=== PATIENT | male | born 1930 | race Caucasian/White ===

== ENCOUNTER 2017-03-11 13:01 | Emergency (ER) | payer MEDICARE ==
[2017-03-11 13:15] VITALS: TEMP 97.8; O2SAT 97
[2017-03-11] MEDS ORDERED: HYDROcodone 7.5MG/APAP 325MG 1 EA TAB PO ONE (13:28)
--- NOTE | 2017-03-11 13:36 | RAD ---
EXAM DESCRIPTION: Wrist,Left 3 Views CLINICAL HISTORY: 86 years Male, fall with pain at wrist, swelling this am IMPRESSION: Two views of the left wrist reveal a comminuted fracture of the distal radius with extension into the radiocarpal joint. Degenerative change seen within the base of thumb and DIP joints of the five digits. No additional fractures noted. Vascular calcification is Electronically signed by: Dariel Cotto MD 03/11/2017 1:35 PM CDT
--- NOTE | 2017-03-11 14:12 | ED.PDOC ---
History of Present Illness - General Chief Complaint: Upper Extremity Injury Time Seen by Provider: 03/11/17 13:08 Source: patient, family Exam Limitations: no limitations - History of Present Illness Initial Comments: the patient is an 86-year-old male presenting to the emergency room after having fallen approximately 3 hours prior to arrival on his outstretched left hand. The patient has some swelling and pain surrounding the entirety of the left wrist. No lacerations. He appears to be neurovascularly intact. Capillary refills less than 2 seconds. Sensation is preserved. Tendon function appears to be preserved. No evidence of injury elsewhere. The patient simply tripped and fell. Occurred: this morning Pain - Upper Extremity: severe: Wrist, left Method of Injury: fell Improving Factors: immobilization Worsening Factors: movement Allergies/Adverse Reactions: Allergies NO KNOWN ALLERGY Allergy (Verified 03/11/17 13:14) Home Medications: Ambulatory Orders [id number] [Fioricet] 1 ea PO Q8H PRN #21 tab 03/11/17 Review of Systems - Review of Systems Constitutional: States: no symptoms reported EENTM: States: no symptoms reported Respiratory: States: no symptoms reported Cardiology: States: no symptoms reported Gastrointestinal/Abdominal: States: no symptoms reported Genitourinary: States: no symptoms reported Musculoskeletal: States: see HPI Skin: States: no symptoms reported Neurological: States: no symptoms reported Endocrine: States: no symptoms reported All other Systems: No Change from Baseline Past Medical History (General) - Patient Medical History Hx Stroke: No Hx Cardiac Disorders: Yes - Hx CEA and CABG; high cholesterol Hx Congestive Heart Failure: No Hx Hypertension: Yes Hx Thyroid Disease: Yes Hx Diabetes: No Hx Cancer: Yes - skin CA Surgical History: colectomy - Vaccination History Hx Influenza Vaccination: Yes Hx Pneumococcal Vaccination: Yes - Social History Hx Tobacco Use: No Family Medical History - Family History Father Family History: No Known Living Status: Physical Exam - Physical Exam General Appearance: Alert, No apparent distress Eyes, Ears, Nose, Throat Exam: PERRL/EOMI, other - hearing appears to be grossly preserved Neck: non-tender, full range of motion, supple Cardiovascular/Respiratory: normal peripheral pulses, no respiratory distress, other - regular rate Back Exam: normal inspection, no vertebral tenderness Shoulder Exam: normal inspection, non-tender, no evidence of injury, normal ROM Elbow/Forearm Exam: normal inspection, non-tender, no evidence of injury, normal ROM Wrist Exam: bone tenderness, pain, swelling Hand Exam: normal inspection, non-tender, no evidence of injury Neuro/Tendon: normal sensation, normal motor functions, normal tendon functions Mental Status: alert, oriented x 3 Skin Exam: normal color Comments: Vital Signs - 24 hr 03/11/17 13:06 Temperature 97.8 F Pulse Rate [ 63 Left Radial] Respiratory 20 Rate Blood Pressure 137/61 [Right Arm] O2 Sat by Pulse 97 Oximetry Progress - Progress Progress: 03/11/17 14:12 the patient is a 86-year-old male presenting after a fall on his outstretched left arm sustaining a distal radius fracture. The distal radius fracture is comminuted in nature and does extend into the radiocarpal joint. There are no lacerations. There is nothing to reduce externally at this time. The patient will be written for Fioricet for pain control. He does need to follow up with Dr. boswell at 9 AM on for evaluation to see if he is going to require surgical intervention. Due to gait instability issues the patient is placed in an extended ulnar gutter splint with slight ulnar deviation and flexion of the wrist, and should use a sling additionally to help prevent movement of the fracture sites. he is to return to the emergency room for any significant worsening of symptoms. ER warnings were given. 2 Advil can be taken 3 times daily with food to help reduce pain is well for the next 3-4 days 03/11/17 14:16 Departure - Departure Clinical Impression: Distal radius fracture, left Qualifiers: Encounter type: initial encounter Fracture type: closed Fracture morphology: other intra-articular Qualifier Code: (S52.572A) Other intraarticular fracture of lower end of left radius, initial encounter for closed fracture Disposition: Discharge to Home or Self Care Condition: Fair Departure Forms: ED Discharge - Pt. Copy, Patient Portal Self Enrollment Instructions: DI for Wrist Fracture Diet: regular diet Activity: no pushing/pulling with affected limb Referrals: Fran Swain MD [Primary Care Provider] - 1-2 Weeks Prescriptions: Gwrdbrdjqzooo-Mczj-Epssqejuhg [Fioricet] 1 ea PO Q8H PRN #21 tab PRN Reason: Pain Home Medications: Ambulatory Orders Qazxnpnzfnhwa-Cywv-Viqazwfcrb [Fioricet] 1 ea PO Q8H PRN #21 tab 03/11/17 Additional Instructions: the patient is a 86-year-old male presenting after a fall on his outstretched left arm sustaining a distal radius fracture. The distal radius fracture is comminuted in nature and does extend into the radiocarpal joint. There are no lacerations. There is nothing to reduce externally at this time. The patient will be written for Fioricet for pain control. He does need to follow up with Dr. boswell at 9 AM on for evaluation to see if he is going to require surgical intervention. Due to gait instability issues the patient is placed in an extended ulnar gutter splint with slight ulnar deviation and flexion of the wrist, and should use a sling additionally to help prevent movement of the fracture sites. he is to return to the emergency room for any significant worsening of symptoms. ER warnings were given. 2 Advil can be taken 3 times daily with food to help reduce pain is well for the next 3-4 days
[2017-03-11 14:36] VITALS: BP 132/67
== END 2017-03-11 14:36 | disposition home or self-care (01) ==
LOC: ER 13:01
DX: S52.572A Other intraarticular fracture of lower end of left radius, initial encounter for closed fracture (principal); I10 Essential (primary) hypertension; E03.9 Hypothyroidism, unspecified; E78.00 Pure hypercholesterolemia, unspecified; Z85.828 Personal history of other malignant neoplasm of skin; Z95.1 Presence of aortocoronary bypass graft; W01.0XXA Fall on same level from slipping, tripping and stumbling without subsequent striking against object, initial encounter

== ENCOUNTER → 2017-03-13 | Outpatient (CLI) | payer MEDICARE ==
--- NOTE | 2017-03-14 08:20 | RAD ---
EXAM DESCRIPTION: Wrist,Left 3 Views CLINICAL HISTORY: 86 years,Male ,FX COMPARISON: March 11, 2017 FINDINGS: The left wrist demonstrates comminuted fracture to the distal radius with intra-articular extent. There is no incongruency of the articular surface but there is some widening of the fracture line at least two places. Up to 3 mm at the ulnar aspect and 4 mm at the dorsal aspect with mild impaction and mild blurring of the fracture line indicating some healing since prior study. But no change in placement.. Soft tissues appear unremarkable. Joint spaces are unremarkable.. Overlying ulnar splint is seen now. IMPRESSION: Healing comminuted fracture to the distal left radius. Electronically signed by: Devante Mathis MD 03/14/2017 8:19 AM CDT
== END ==
LOC: RAD 09:01
PROVIDERS: ATTEND Orthopaedic Surgery
DX: S52.502D Unspecified fracture of the lower end of left radius, subsequent encounter for closed fracture with routine healing (principal)

== ENCOUNTER → 2017-03-21 | Outpatient (CLI) | payer MEDICARE ==
--- NOTE | 2017-03-21 13:00 | RAD ---
EXAM DESCRIPTION: Wrist,Left 3 Views CLINICAL HISTORY: 86 years, Male, FX COMPARISON: March 13, 2017 TECHNIQUE: AP/ lateral/ oblique views of the left wrist. FINDINGS: Out of splint imaging demonstrates a nondisplaced articular fracture of the distal radius in stable anatomic alignment. On the lateral view slight displacement of the dorsal fragments is evident and little changed from prior study. No carpal dislocation is seen. Additional fractures are not apparent. IMPRESSION: 1. Comminuted near-anatomic intra-articular fracture of the distal radius with slight displacement of the dorsal fragments on the lateral view only. Electronically signed by: Esau Corrigan MD 03/21/2017 1:00 PM CDT
== END | disposition home or self-care (01) ==
LOC: RAD 09:00
PROVIDERS: ATTEND Orthopaedic Surgery
DX: S52.502D Unspecified fracture of the lower end of left radius, subsequent encounter for closed fracture with routine healing (principal); X58.XXXA Exposure to other specified factors, initial encounter

== ENCOUNTER → 2017-04-04 | Outpatient (CLI) | payer MEDICARE ==
--- NOTE | 2017-04-06 11:42 | RAD ---
EXAM DESCRIPTION: Wrist,Left 3 Views CLINICAL HISTORY: 86 years, Male, CLOSED FX COMPARISON: March 21, 2017 TECHNIQUE: AP/ lateral/ oblique views of the left wrist. FINDINGS: A nondisplaced intra-articular fracture of the distal radius is evident on the AP view and remains in stable alignment with very slight dorsal displacement noted on the lateral view with some developing callus formation. No significant change in alignment is noted and a small amount callus at the volar extent of the fracture on the lateral view is also apparent. The distal ulna is intact and no carpal dislocation seen. IMPRESSION: 1. Stable intra-articular fracture of the distal radius with early changes of callus formation at the dorsal and volar aspect of the fracture with stable alignment unchanged from 03/21/2017 Electronically signed by: Esau Corrigan MD 04/06/2017 11:41 AM CDT
== END | disposition home or self-care (01) ==
LOC: RAD 09:00
PROVIDERS: ATTEND Orthopaedic Surgery
DX: S52.502D Unspecified fracture of the lower end of left radius, subsequent encounter for closed fracture with routine healing (principal)

== ENCOUNTER → 2017-04-24 | Outpatient (CLI) | payer MEDICARE ==
--- NOTE | 2017-04-24 09:37 | RAD ---
EXAM DESCRIPTION: Wrist,Left 3 Views CLINICAL HISTORY: 86 years, Male, FRACTURE COMPARISON: March 21, 2017 TECHNIQUE: AP/ lateral/ oblique views of the left wrist. FINDINGS: A nondisplaced intra-articular fracture of the distal radius is evident on the AP view and remains in stable alignment with very slight dorsal displacement noted on the lateral view with some developing periosteal callus formation. No significant change in alignment is noted and a small amount callus at the volar extent of the fracture on the lateral view is also apparent. The distal ulna is intact and no carpal dislocation seen. IMPRESSION: 1. Stable intra-articular fracture of the distal radius with early changes of periosteal callus formation at the dorsal and volar aspect of the fracture with stable alignment unchanged from April 04, 2017 Electronically signed by: Ayo Lopez MD 04/24/2017 9:37 AM CDT
== END | disposition home or self-care (01) ==
LOC: RAD 09:19
PROVIDERS: ATTEND Orthopaedic Surgery
DX: S52.502D Unspecified fracture of the lower end of left radius, subsequent encounter for closed fracture with routine healing (principal); X58.XXXA Exposure to other specified factors, initial encounter

== ENCOUNTER → 2017-05-13 | Outpatient (CLI) | payer MEDICARE ==
--- NOTE | 2017-05-13 09:49 | RAD ---
EXAM DESCRIPTION: Wrist,Left 3 Views CLINICAL HISTORY: 86 years, Male, RAD FX COMPARISON: April 24, 2017 TECHNIQUE: AP/ lateral/ oblique views of the left wrist. FINDINGS: Increased sclerosis and callus formation with incomplete healing of the intra-articular fracture of the distal radius is noted. Less lucency is noted in comparison to recent prior study. A longitudinal fracture line through the mid articular surface remains and is most evident on the oblique view. Slight central impaction on the lateral study is suggested but unchanged. The carpal bones are degenerative and mildly osteopenic but no fracture is noted. The distal ulna is intact. IMPRESSION: 1. Comminuted intra-articular fracture of the deep distal radius with slight impaction with evidence of partial progressive healing since prior study Electronically signed by: Esau Corrigan MD 05/13/2017 9:48 AM CDT
== END | disposition home or self-care (01) ==
LOC: RAD 07:50
PROVIDERS: ATTEND Orthopaedic Surgery
DX: S52.502D Unspecified fracture of the lower end of left radius, subsequent encounter for closed fracture with routine healing (principal); X58.XXXA Exposure to other specified factors, initial encounter

== ENCOUNTER → 2017-06-09 | Outpatient (CLI) | payer MEDICARE ==
--- NOTE | 2017-06-09 17:23 | RAD ---
EXAM DESCRIPTION: Wrist,Left 3 Views CLINICAL HISTORY: 86 years Male, CLOSED FX OF DISTAL END OF RADIUS COMPARISON: None. FINDINGS: 3 views of the left wrist again show a minimally displaced comminuted distal radial fracture with intra-articular extension. Overall, the appearance of the fracture is unchanged from May 17, 2017 and the fracture remains at least partially nonunited. Minimal callus formation is noted. No new abnormality or other significant interval change. IMPRESSION: Comminuted distal left radial fracture with intracranial extension, not significantly changed from May 13, 2017. Minimal callus formation, and the fracture remains largely nonunited. Electronically signed by: Felice Nguyễn MD 06/09/2017 11:43 AM CDT Workstation: [facility]ENTERAxial ExchangeBLECK[facility]
== END ==
LOC: RAD 08:37
PROVIDERS: ATTEND Orthopaedic Surgery
DX: S52.502D Unspecified fracture of the lower end of left radius, subsequent encounter for closed fracture with routine healing (principal)

== ENCOUNTER → 2018-01-30 | Outpatient (CLI) | payer MEDICARE | LOC: GMAH 11:13 | PROVIDERS: ATTEND Family Medicine | DX: E03.4 Atrophy of thyroid (acquired) (principal) ==

== ENCOUNTER 2018-03-26 05:38 | Day surgery (SDC) | payer MEDICARE ==
[2018-03-26] MEDS ORDERED: TROP 1%/CYCLOPEN 1%/PHENYL 2% DROPS ONE (08:40)
[2018-03-26] MEDS ORDERED: MIDAZOLAM INJ 2 MG/2 ML VIAL ONE (12:38)
[2018-03-26] MEDS ORDERED: TOBRAMYCIN SULF 0.3 % OPHT SOL 1 DROP LEFT_EYE ONE ×3 (12:40→14:24)
[2018-03-26] MEDS: PROPARACAINE 0.5% OPHTH SOL 15 ML BTTL ONE ×2 (12:40→14:04)
[2018-03-26] MEDS ORDERED: DEXAMETHASONE 0.1% OPHTH SOL 1 DROP LEFT_EYE ONE ×2 (14:18→14:24)
[2018-03-26] MEDS ORDERED: BRIMONIDINE 0.2% OPHTH DROPS LEFT_EYE ONE ×2 (14:18→14:24)
[2018-03-26 15:15] VITALS: BP 140/74; TEMP 96.8; O2SAT 94
== END 2018-03-26 15:05 | disposition home or self-care (01) ==
LOC: AMB 05:38
PROVIDERS: ATTEND Ophthalmology
DX: H25.12 Age-related nuclear cataract, left eye (principal); I10 Essential (primary) hypertension; I25.10 Atherosclerotic heart disease of native coronary artery without angina pectoris
CPT/HCPCS: 00142; 66984; J2250

== ENCOUNTER 2018-04-09 05:59 | Day surgery (SDC) | payer MEDICARE ==
[2018-04-09] MEDS ORDERED: TROP 1%/CYCLOPEN 1%/PHENYL 2% DROPS ONE (10:22)
[2018-04-09] MEDS ORDERED: PROPARACAINE 0.5% OPHTH SOL 15 ML BTTL ONE (10:22)
[2018-04-09] MEDS ORDERED: MIDAZOLAM INJ 2 MG/2 ML VIAL ONE (12:20)
[2018-04-09] MEDS ORDERED: PROPARACAINE 0.5% OPHTH SOL 15 ML BTTL RIGHT_EYE ONE (14:04)
[2018-04-09] MEDS ORDERED: LIDOCAINE 1% PF 2 ML AMP INJ ONE (14:17)
[2018-04-09] MEDS ORDERED: DEXAMETHASONE 0.1% OPHTH SOL 1 DROP RIGHT_EYE ONE ×2 (14:18→14:22)
[2018-04-09] MEDS ORDERED: TOBRAMYCIN SULF 0.3 % OPHT SOL 1 DROP RIGHT_EYE ONE ×2 (14:18→14:22)
[2018-04-09] MEDS ORDERED: BRIMONIDINE 0.2% OPHTH DROPS RIGHT_EYE ONE ×2 (14:18→14:22)
== END 2018-04-09 15:00 | disposition home or self-care, planned readmission (81) ==
LOC: AMB 05:59
PROVIDERS: ATTEND Ophthalmology
DX: H25.11 Age-related nuclear cataract, right eye (principal); I10 Essential (primary) hypertension; I25.10 Atherosclerotic heart disease of native coronary artery without angina pectoris; F03.90 Unspecified dementia, unspecified severity, without behavioral disturbance, psychotic disturbance, mood disturbance, and anxiety; Z95.1 Presence of aortocoronary bypass graft; Z79.82 Long term (current) use of aspirin; Z79.899 Other long term (current) drug therapy
CPT/HCPCS: 00142; 66984; J2250

== ENCOUNTER → 2018-05-05 | Outpatient (CLI) | payer MEDICARE | LOC: GMAH 10:41 | PROVIDERS: ATTEND Family Medicine | DX: Z12.5 Encounter for screening for malignant neoplasm of prostate (principal); I10 Essential (primary) hypertension | CPT/HCPCS: 84443; 84550; G0103 ==

== ENCOUNTER → 2018-11-25 | Outpatient (CLI) | payer MEDICARE | LOC: BFHH 11:13 | PROVIDERS: ATTEND Surgery | DX: I25.10 Atherosclerotic heart disease of native coronary artery without angina pectoris (principal); I10 Essential (primary) hypertension ==

== ENCOUNTER → 2018-11-26 | Outpatient (CLI) | payer MEDICARE | LOC: BFHH 13:10 | PROVIDERS: ATTEND Family Medicine | DX: L97.319 Non-pressure chronic ulcer of right ankle with unspecified severity (principal) ==

== ENCOUNTER → 2018-12-25 | Outpatient (CLI) | payer MEDICARE ==
--- NOTE | 2018-12-25 11:30 | MRI ---
EXAM DESCRIPTION: MRI right ankle CLINICAL HISTORY: Medial right ankle pain since September 2018 COMPARISON: None. TECHNIQUE: Multiplanar, multisequence MR images of the right ankle FINDINGS: Tibiofibular syndesmosis and ligaments are intact. Remote anterior talofibular ligament tear with attenuation. Calcaneofibular and posterior talofibular ligaments are intact. Intact deltoid ligament and calcaneonavicular ligament Posterior tibial, flexor digitorum and flexor hallux tendons are intact. Dorsiflexion tendons are normal. Flattened peroneus brevis retromalleolar. Tendinosis without split morphology. Peroneus longus tendon intact Mild chronic Achilles tendinosis. No acute abnormality. Distal dorsal insertional enthesophyte without edema Large well-corticated plantar calcaneal spur. No acute abnormality of the plantar fascia. Chronically thickened middle bundle No mass lesion seen along the neurovascular structures. Mild edema in the medial plantar nerve along the arch the foot. In addition to fatty infiltration of the intrinsic muscles of the foot there is mild diffuse edema. The muscles of the lower leg and the intrinsic muscles of the foot are atrophic and diffusely fatty infiltrated, chronic denervation Prominent intraosseous vasculature throughout the tibia, fibula and bones of the ankle. Edema within the distal fibular diaphysis, seen on the edge of [id number]. No linear stress fracture. No edema in the tibia or tarsal bones. No osteochondral lesion of the hindfoot or ankle IMPRESSION: Mild intramedullary edema in the distal fibular diaphysis. There are prominent intraosseous vessels which may account for this finding on the edge of the [id number]. Stress related edema could have a similar appearance. No other marrow abnormality or osteochondral lesion Diffuse severely atrophic and fatty infiltrated muscles of the lower leg. Minimal edema in the medial plantar nerve, nonspecific neuritis. The muscle atrophy and fatty infiltration is compatible with denervation etiology Electronically signed by: Esau Garrett MD 12/25/2018 11:28 AM [facility]
== END ==
LOC: MRI 11:09
PROVIDERS: ATTEND Family Medicine
DX: M25.579 Pain in unspecified ankle and joints of unspecified foot (principal); M62.561 Muscle wasting and atrophy, not elsewhere classified, right lower leg; R60.0 Localized edema

== ENCOUNTER → 2019-07-30 | Outpatient (CLI) | payer MEDICARE ==
--- NOTE | 2019-07-30 12:27 | CT ---
EXAM DESCRIPTION: Head w/wo Contrast CLINICAL HISTORY: LOCALIZED SWELLING MASS LUMP COMPARISON: None available TECHNIQUE: CT brain is performed prior to and following IV administration of routine adult dose of nonionic iodinated IV contrast. FINDINGS: Ventricles and sulci are prominent consistent with age-related cerebral volume loss. There is no hemorrhage or mass. There are no white matter abnormalities detected on the precontrast images. The calvarium is unremarkable. Soft tissue mass in the posterior left frontal region involves the scalp and measures 1.5 x 1.1 cm. No underlying bony involvement. Similar smaller lesion on the right seen on the axial images measures 7 mm. Correlate with dermatologic exam/biopsy. The visualized paranasal sinuses and the mastoids are clear. After IV contrast, repeat axial CT scan through the head shows normal enhancement of intracranial vessels. Normal liao-white matter differentiation. No enhancing intracranial mass or abnormal brain parenchymal enhancement to suggest disruption of the blood brain barrier. Coronal and sagittal reformatted images confirm the findings. IMPRESSION: No acute intracranial pathologic process. Bilateral posterior frontal scalp lesions, larger on the left than the right, with no involvement of the underlying calvarium. Dermatologic consultation/biopsy recommended. This exam was performed according to our departmental dose-optimization program, which includes automated exposure control, adjustment of the mA and/or kV according to patient size and/or use of iterative reconstruction technique. Electronically signed by: Jarred Galeano MD 07/30/2019 12:13 PM CDT
--- NOTE | 2019-07-30 12:39 | CT ---
EXAM DESCRIPTION: Chest w/Contrast CLINICAL HISTORY: 89 years, Male, LOCALIZED SWELLING COMPARISON: None TECHNIQUE: Thin-section noncontrast axial CT images are obtained according to our protocol. Reconstructed MPR images are created and reviewed as well. FINDINGS: Lungs: Patchy infiltrates in both lower lobes, left more than right, could be pneumonia or atelectasis. No central obstructing lesion with positive air bronchograms in the consolidated areas. No worrisome pulmonary mass or nodule. Mediastinum: Lymph nodes are normal in size. Normal vascular contours. Heart size is large with no pericardial effusion. Extensive coronary arterial calcification. Chest wall/axilla: No mass or adenopathy. Lower neck/supraclavicular: No mass or adenopathy. Upper abdomen: Unremarkable upper abdominal viscera. Coronal and sagittal reformatted images confirm the findings. IMPRESSION: Bibasilar atelectasis/consolidation, left more than right, consistent with pneumonia. This exam was performed according to our departmental dose-optimization program, which includes automated exposure control, adjustment of the mA and/or kV according to patient size and/or use of iterative reconstruction technique. Total DLP equals 523.84 mGycm. Electronically signed by: Jarred Galeano MD 07/30/2019 12:19 PM CDT
--- NOTE | 2019-07-30 12:39 | CT ---
EXAM DESCRIPTION: Soft Tissue Neck w/Contrast CLINICAL HISTORY: 89 years, Male, LOCALIZED SWELLING MASS LUMP, NECK COMPARISON: None. TECHNIQUE: CT of the neck is performed during IV administration of routine adult dose of nonionic iodinated IV contrast. MPR images are created and reviewed as well. FINDINGS: Small lesion in the left thyroid lobe measures 7 mm in size and no imaging follow-up is recommended (Reference: J Am Tiffany Radiol. 2014;12(2): 143-50). Lung apices appear clear. Minimal air in the veins on the right cannot be related to IV injection. Degenerative changes noted in the C-spine. Lower brain appears normal. Patchy inflammatory mucosal thickening in the ethmoid sinuses. Normal symmetrical fatty parapharyngeal spaces. Normal symmetrical parotid glands and submandibular salivary glands. No cervical lymph node enlargement. Normal enhancement of the internal jugular veins. Extensive calcification of the carotid bifurcations bilaterally. Correlate with carotid Doppler sonographic findings for CT angiography of the neck. Sagittal reformatted images show small cervical lymph nodes. 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 Mild nodular mucosal thickening in the inferior left maxillary sinus. Coronal reformatted images confirm the findings. IMPRESSION: No acute process is identified in the neck. This exam was performed according to our departmental dose-optimization program, which includes automated exposure control, adjustment of the mA and/or kV according to patient size and/or use of iterative reconstruction technique. Electronically signed by: Jarred Galeano MD 07/30/2019 12:25 PM CDT
== END ==
LOC: CT 09:26
PROVIDERS: ATTEND Otolaryngology
DX: R09.81 Nasal congestion (principal); J98.11 Atelectasis; R91.8 Other nonspecific abnormal finding of lung field; L98.9 Disorder of the skin and subcutaneous tissue, unspecified; R22.1 Localized swelling, mass and lump, neck

== ENCOUNTER → 2019-12-14 | Outpatient (CLI) | payer MEDICARE | LOC: GMA MATASK 10:29 | PROVIDERS: ATTEND Family Medicine | DX: E03.9 Hypothyroidism, unspecified (principal); E78.2 Mixed hyperlipidemia ==

== ENCOUNTER → 2020-07-06 | Outpatient (CLI) | payer MEDICARE | LOC: GMA MATASK 10:06 | PROVIDERS: ATTEND Family Medicine | DX: Z12.5 Encounter for screening for malignant neoplasm of prostate (principal); E03.9 Hypothyroidism, unspecified; I10 Essential (primary) hypertension | CPT/HCPCS: 84443; 84550; G0103 ==

== ENCOUNTER 2020-10-12 16:32 | Emergency (ER) | payer MEDICARE ==
[2020-10-12] MEDS ORDERED: ALUM & MAG HYDROX-SIMETHICONE 30 ML, LIDOCAINE VISCOUS 2% 15 ML PO ONE ×2 (18:36)
--- NOTE | 2020-10-12 18:41 | CT ---
EXAM: Abdoment/Pelvis w/o Contrast CLINICAL INDICATION: Abdominal pain. COMPARISON: There is no previous study for comparison. TECHNIQUE: The CT scan was done using contiguous axial 2.5 mm noncontrast sections through the abdomen and pelvis. This exam was performed according to our departmental dose-optimization program, which includes automated exposure control, adjustment of the mA and/or kV according to patient size and/or use of iterative reconstruction technique. FINDINGS: The visualized portions of the lung bases reveal small to moderate bilateral pleural effusions. Multifocal infiltrates and consolidation are seen in the left lower lobe, lingula and right lower lobe. The liver, gallbladder, kidneys, adrenal glands, spleen, and pancreas have a normal noncontrast CT appearance. The aorta contains atherosclerotic calcifications without evidence of aneurysm. There are no dilated loops of small bowel. There is no free air, free fluid, or abscess. Moderate constipation is noted. IMPRESSION: 1. No evidence of an acute intra-abdominal process. 2. Moderate constipation. 3. Bibasilar infiltrates suspicious for pneumonia. Bilateral pleural effusions. Electronically signed by: Chaitanya Cardenas MD 10/12/2020 6:39 PM [facility]
[2020-10-12] MEDS: METOPROLOL TARTRATE 25 MG TAB PO ONE ×2 (18:51→20:16)
[2020-10-12] MEDS ORDERED: METOPROLOL TARTRATE INJ 5 MG/5 ML VIAL IV ONE (18:55)
[2020-10-12] MEDS ORDERED: METOPROLOL TARTRATE 25 MG TAB PO ONE (19:50)
[2020-10-12] MEDS ORDERED: ACETAMINOPHEN W/COD #3 TAB 1 EA TAB PO ONE (21:02)
[2020-10-12] MEDS ORDERED: AMOXICILLIN & POT CLAVULANATE 875 MG TAB PO ONE (21:02)
--- NOTE | 2020-10-12 21:07 | ED.PDOC ---
History of Present Illness - General Chief Complaint: Abdominal Pain Stated Complaint: upper medial abdominal pain Time Seen by Provider: 10/12/20 17:36 Source: patient Exam Limitations: clinical condition - History of Present Illness Initial Comments: The patient is a 89-year-old male brought up to the emergency room by his daughter secondary to apparently abdominal discomfort. The patient has very advanced dementia and has difficult time communicating. He does have chronic constipation issues related to diuretic use and opiate use for pain control. He does have some abdominal distention and significant palpable stool. No real rebound or peritoneal signs. He has not been throwing up but his oral intake has been decreased. It is questionable whether he has been getting his medications. No definite fever. No real shortness of breath, with the exception of shortness of breath with exertion. He does apparently have a history of atrial fibrillation and CHF. He does take metoprolol and Lasix for that. He is not hypoxic. Again he is not in respiratory distress. He is pleasant and cooperative but very limited use for feedback on the exam. No pro ductive cough. The patient's abdomen did feel significantly better after he had a bowel movement here. The patient is on hospice and family and the patient are eager to get back home and not be admitted to the hospital if at all possible. Timing/Duration: other - 3 days Severity: moderate Improving Factors: nothing Allergies/Adverse Reactions: Allergies NO KNOWN ALLERGY Allergy (Verified 10/12/20 17:22) Home Medications: Ambulatory Orders Gneqzihqheaqd-Dvvw-Dyaingteaa [Fioricet] 1 ea PO Q8H PRN #21 tab 03/11/17 Aspirin [Yaa Low Dose] 81 mg PO DAILY 03/11/17 Ezetimibe [Zetia] 10 mg PO DAILY 03/11/17 Fe Fum-Iron Polysacch Complex- [Integra Plus] 1 cap PO DAILY 03/11/17 Furosemide [Lasix] 40 mg PO DAILY 03/11/17 Lisinopril 5 mg PO DAILY 03/11/17 Memantine HCl [Namenda] 10 mg PO DAILY 03/11/17 Metoprolol Succinate [Metoprolol Succinate ER] 25 mg PO DAILY 03/11/17 Potassium Chloride [Micro-K] 10 meq PO DAILY 03/11/17 Acetaminophen W/ Codeine [Tylenol/Codeine #4 300-60 mg] 1 ea PO Q4HR 10/12/20 Amoxicillin & Pot Clavulanate [Augmentin Tab] 875 mg PO BID #5 tab 10/12/20 Lactulose Syrup [Chronulac] 30 ml PO DAILY #300 ml 10/12/20 Levothyroxine Sodium 50 mcg PO DAILY 10/12/20 Review of Systems - Review of Systems Review of Systems: 10/12/20 21:07 The patient is unable to give a good reliable review of systems. Family is marginally more helpful and all information essentially comes from them. 10/12/20 21:07 Constitutional: States: malaise EENTM: States: no symptoms reported Respiratory: States: short of breath - With exertion only Cardiology: States: no symptoms reported Gastrointestinal/Abdominal: States: constipation Genitourinary: States: no symptoms reported Musculoskeletal: States: see HPI Skin: States: no symptoms reported Neurological: States: see HPI Endocrine: States: no symptoms reported All other Systems: No Change from Baseline Past Medical History (General) - Patient Medical History Hx Stroke: No Hx Cardiac Disorders: Yes - Hx CEA and CABG; high cholesterol Hx Congestive Heart Failure: No Hx Hypertension: Yes Hx Thyroid Disease: Yes Hx Diabetes: No Hx Cancer: Yes - skin CA Hx MRSA: No - Vaccination History Hx Influenza Vaccination: Yes Hx Pneumococcal Vaccination: Yes - Social History Hx Tobacco Use: No Hx Alcohol Use: No - Female History Patient is a Female of Child Bearing Age (10 -59 yrs old): No Family Medical History - Family History Father Family History: No Known Living Status: Physical Exam - Physical Exam General Appearance: Alert - But may be a little bit drowsy, Frail Eye Exam: bilateral normal Ears, Nose, Throat: hearing grossly normal, normal pharynx Neck: non-tender, supple Respiratory: no respiratory distress, no accessory muscle use, rales - Mild rales at bilateral bases. Cardiovascular/Chest: normal peripheral pulses, no edema, tachycardia, irregularly irregular Peripheral Pulses: radial,right: 2+, radial,left: 2+ Gastrointestinal/Abdominal: soft, other - See history of present illness. Rectal Exam: deferred Back Exam: no CVA tenderness, no vertebral tenderness Extremity: normal range of motion, normal inspection, no pedal edema, normal capillary refill Neurologic: parent coach II-XII nml as tested, alert, other - More drowsy than normal. Very advanced dementia. Skin Exam: normal color Comments: Vital Signs - 24 hr 10/12/20 10/12/20 10/12/20 17:07 17:26 18:00 Temperature 97.9 F Pulse Rate [ 128 H 78 138 H Right Radial] Respiratory 22 26 H 18 Rate Blood Pressure 129/86 121/80 [Left Arm] O2 Sat by Pulse 96 93 L Oximetry 10/12/20 10/12/20 19:21 20:00 Temperature Pulse Rate [ 100 H 128 H Right Radial] Respiratory 18 16 Rate Blood Pressure 135/89 100/69 [Left Arm] O2 Sat by Pulse 93 L Oximetry Progress - Progress Progress: 10/12/20 21:10 The patient is an 89-year-old male brought to the emergency room primarily due to abdominal discomfort that appears to be due to constipation. He did have a large bowel movement here and was feeling significantly better after that. The patient does appear to be having a mild CHF exacerbation likely related to uncontrolled A. fib with RVR most likely due to poor medical compliance. The patient is not hypoxic and not in respiratory distress. For now I think the patient needs to take his metoprolol twice daily as prescribed. I would also hold off on the lisinopril and Zetia for now. He needs to increase his Lasix to twice daily for the next 2 days only. The patient may have a small underlying pneumonia as well. Again he is not hypoxic or in respiratory distress. The patient is going to be placed on Augmentin twice daily for the next 5 days. He also has a small amount of hematuria for which this may help. Urine will be cultured. The patient will also be written for lactulose to use midday daily to help reduce the constipation as well. I do want the family to contact his primary care doctor tomorrow and relay the plan. The patient and his family are eager to get back home so we will honor their wishes at this time. Obviously if he is worsening in any significant way then he is to return. ER warnings are given. markel long [id number] - Results/Orders Results/Orders: Laboratory Tests 10/12/20 10/12/20 10/12/20 17:55 17:55 17:55 WBC 11.5 H RBC 4.06 L Hgb 12.9 L Hct 36.7 L MCV 90.5 MCH 31.8 H MCHC 35.2 RDW 14.0 Plt Count 346 MPV 7.7 Absolute Neuts (auto) 8.80 H Absolute Lymphs (auto) 1.60 Absolute Monos (auto) 1.00 H Absolute Eos (auto) 0.00 Absolute Basos (auto) 0.00 Neutrophils % 77.1 Lymphocytes % 14.0 L Monocytes % 8.4 Eosinophils % 0.1 L Basophils % 0.4 PT 11.0 H INR 1.11 PTT (SP) 27.1 D-Dimer, Quantitative 609.0 H* Sodium 135 Potassium 3.4 L Chloride 104 Carbon Dioxide 20 L Anion Gap 14.4 BUN 27 H Creatinine 1.20 BUN/Creatinine Ratio 22.5 H Random Glucose 132 H Serum Osmolality 277.1 Lactic Acid Calcium 7.1 L Total Bilirubin 1.0 AST 23 ALT 31 Alkaline Phosphatase 53 Creatine Kinase 32 L CK-MB (CK-2) 1.7 CK-MB (CK-2) % Not Reportable Troponin I 0.06 H B-Natriuretic Peptide 173.0 H Serum Total Protein 6.3 L Albumin 3.1 L Globulin 3.2 Albumin/Globulin Ratio 1.0 L Amylase 22 L Lipase 24 Urine Color Urine Appearance Urine pH Ur Specific [place] Urine Protein Urine Glucose (UA) Urine Ketones Urine Blood Urine Nitrite Urine Bilirubin Urine Urobilinogen Ur Leukocyte Esterase Urine RBC Urine WBC Ur Epithelial Cells Urine Bacteria 10/12/20 10/12/20 17:55 18:15 WBC RBC Hgb Hct MCV MCH MCHC RDW Plt Count MPV Absolute Neuts (auto) Absolute Lymphs (auto) Absolute Monos (auto) Absolute Eos (auto) Absolute Basos (auto) Neutrophils % Lymphocytes % Monocytes % Eosinophils % Basophils % PT INR PTT (SP) D-Dimer, Quantitative Sodium Potassium Chloride Carbon Dioxide Anion Gap BUN Creatinine BUN/Creatinine Ratio Random Glucose Serum Osmolality Lactic Acid 1.5 Calcium Total Bilirubin AST ALT Alkaline Phosphatase Creatine Kinase CK-MB (CK-2) CK-MB (CK-2) % Troponin I B-Natriuretic Peptide Serum Total Protein Albumin Globulin Albumin/Globulin Ratio Amylase Lipase Urine Color Yellow Urine Appearance Sl cloudy Urine pH 6.0 Ur Specific [place] 1.025 Urine Protein 30 Urine Glucose (UA) Negative Urine Ketones 40 H Urine Blood Moderate H Urine Nitrite Negative Urine Bilirubin Small H Urine Urobilinogen 1.0 Ur Leukocyte Esterase Negative Urine RBC >50 H Urine WBC 0-1 Ur Epithelial Cells 5-10 Urine Bacteria Rare - EKG/XRAY/CT CT Ordered: Yes Departure - Departure Clinical Impression: Chronic atrial fibrillation with RVR Constipation Qualifiers: Constipation type: other constipation type Qualified Code(s): K59.09 - Other constipation CHF exacerbation Qualifiers: Heart failure type: combined systolic and diastolic Qualified Code(s): I50.43 - Acute on chronic combined systolic (congestive) and diastolic (congestive) heart failure Hematuria Qualifiers: Hematuria type: unspecified type Qualified Code(s): R31.9 - Hematuria, unspecified Disposition: Discharge to Home or Self Care Condition: Poor Departure Forms: ED Discharge - Pt. Copy, Patient Portal Self Enrollment Diet: regular diet Activity: increase activity as tolerated Referrals: Derek Cole MD [Primary Care Provider] - 1-2 Weeks Prescriptions: Amoxicillin & Pot Clavulanate [Augmentin Tab] 875 mg PO BID #5 tab Lactulose Syrup [Chronulac] 30 ml PO DAILY #300 ml Home Medications: Ambulatory Orders Vcrsqxgphlbep-Vegc-Mamyzyccly [Fioricet] 1 ea PO Q8H PRN #21 tab 03/11/17 Aspirin [Yaa Low Dose] 81 mg PO DAILY 03/11/17 Ezetimibe [Zetia] 10 mg PO DAILY 03/11/17 Fe Fum-Iron Polysacch Complex- [Integra Plus] 1 cap PO DAILY 03/11/17 Furosemide [Lasix] 40 mg PO DAILY 03/11/17 Lisinopril 5 mg PO DAILY 03/11/17 Memantine HCl [Namenda] 10 mg PO DAILY 03/11/17 Metoprolol Succinate [Metoprolol Succinate ER] 25 mg PO DAILY 03/11/17 Potassium Chloride [Micro-K] 10 meq PO DAILY 03/11/17 Acetaminophen W/ Codeine [Tylenol/Codeine #4 300-60 mg] 1 ea PO Q4HR 10/12/20 Amoxicillin & Pot Clavulanate [Augmentin Tab] 875 mg PO BID #5 tab 10/12/20 Lactulose Syrup [Chronulac] 30 ml PO DAILY #300 ml 10/12/20 Levothyroxine Sodium 50 mcg PO DAILY 10/12/20 Additional Instructions: The patient is an 89-year-old male brought to the emergency room primarily due to abdominal discomfort that appears to be due to constipation. He did have a large bowel movement here and was feeling significantly better after that. The patient does appear to be having a mild CHF exacerbation likely related to uncontrolled A. fib with RVR most likely due to poor medical complia nce. The patient is not hypoxic and not in respiratory distress. For now I think the patient needs to take his metoprolol twice daily as prescribed. I would also hold off on the lisinopril and Zetia for now. He needs to increase his Lasix to twice daily for the next 2 days only. The patient may have a small underlying pneumonia as well. Again he is not hypoxic or in respiratory distress. The patient is going to be placed on Augmentin twice daily for the next 5 days. He also has a small amount of hematuria for which this may help. Urine will be cultured. The patient will also be written for lactulose to use midday daily to help reduce the constipation as well. I do want the family to contact his primary care doctor tomorrow and relay the plan. The patient and his family are eager to get back home so we will honor their wishes at this time. Obviously if he is worsening in any significant way then he is to return. ER warnings are given.
[2020-10-12 21:56] VITALS: BP 98/71; TEMP 97.1; O2SAT 94
== END 2020-10-12 21:30 | disposition home or self-care (01) ==
LOC: ER 16:32
DX: I48.20 Chronic atrial fibrillation, unspecified (principal); R00.0 Tachycardia, unspecified; I50.43 Acute on chronic combined systolic (congestive) and diastolic (congestive) heart failure; K59.00 Constipation, unspecified; R31.9 Hematuria, unspecified; E78.00 Pure hypercholesterolemia, unspecified; I11.0 Hypertensive heart disease with heart failure; E07.9 Disorder of thyroid, unspecified; Z95.1 Presence of aortocoronary bypass graft; Z85.828 Personal history of other malignant neoplasm of skin; Z79.899 Other long term (current) drug therapy; Z79.82 Long term (current) use of aspirin; Z20.828 Contact with and (suspected) exposure to other viral communicable diseases

== ENCOUNTER 2020-11-12 18:55 | Emergency (ER) | payer MEDICARE ==
[2020-11-12] MEDS ORDERED: SODIUM CHLORIDE 0.9% 1000ML 1,000 ML IVS ONE (19:57)
--- NOTE | 2020-11-12 19:57 | RAD ---
EXAM: XR Abdomen, 2 Views and XR Chest, 1 View CLINICAL HISTORY: The patient is 89 years old and is Male; sob, abd pain TECHNIQUE: Three views total including of the chest, frontal view of the abdomen/pelvis and upright or decubitus view of the abdomen. COMPARISON: CT abdomen pelvis October 12, 2020. FINDINGS: Lungs: Bibasilar atelectasis. Left pleural effusion. Pleural space: No pneumothorax. Heart: Status post CABG surgery. Mediastinum: Unremarkable. Intraperitoneal space: No free air. Gastrointestinal tract: Multiple distended small bowel loops. Gas and stool in the colon. Bones/joints: Sternal closure wires. Right common iliac vascular stent. IMPRESSION: 1. Multiple dilated small and large bowel loops, likely ileus. 2. Bibasilar atelectasis. Left pleural effusion. 3. Additional non-emergent findings as above. Electronically signed by: Rosalinda Wright MD 11/12/2020 7:56 PM [employer]
[2020-11-12] MEDS ORDERED: PIPERACILLIN/TAZOBACTAM 3.375 GM in SODIUM CHLORIDE 0.9% 100ML 100 ML IVPB ONE (20:00)
--- NOTE | 2020-11-12 21:13 | CT ---
CT ABDOMEN PELVIS WITH IV CONTRAST HISTORY: Abdominal pain. COMPARISON: CT from 10/12/2020. Radiographs from earlier the same day. TECHNIQUE: CT scan of the abdomen and pelvis was performed with IV contrast. This exam was performed according to our departmental dose-optimization program, which includes automated exposure control, adjustment of the mA and/or kV according to patient size and/or use of iterative reconstruction technique. FINDINGS: The liver, spleen, pancreas, gallbladder, adrenal glands, and kidneys are unremarkable. No hydronephrosis or urinary stones are seen. The pelvic organs are also unremarkable. There is a large amount of stool in the rectum suggestive of constipation. The appendix is not clearly identified. There are multiple loops of small bowel in the lower abdomen which are dilated and fluid-filled, measuring up to 4.6 cm. No discrete transition point is identified. There is no free fluid or free air. No intraperitoneal adenopathy is seen. The aorta is normal caliber and contains atherosclerotic calcifications. Old compression deformity of T12 is noted. There is no abnormal body wall hernia evident. IMPRESSION: 1. Multiple dilated and fluid-filled loops of small bowel in the lower abdomen, which may represent ileus or developing small bowel obstruction. 2. Large amount of stool in the rectum consistent with constipation. Electronically signed by: Vicente Loo MD 11/12/2020 9:12 PM [employer]
--- NOTE | 2020-11-12 21:19 | CT ---
CT CHEST ANGIOGRAPHY WITH IV CONTRAST HISTORY: Shortness of breath. COMPARISON: None. TECHNIQUE: CT angiogram of the chest with IV contrast. 3-D MIP images were obtained in coronal and sagittal reconstructions. This exam was performed according to our departmental dose-optimization program, which includes automated exposure control, adjustment of the mA and/or kV according to patient size and/or use of iterative reconstruction technique. FINDINGS: No filling defects are seen in the pulmonary trunk or the left and right main pulmonary artery. There is limited evaluation of the segmental branches due to motion artifact. The thyroid gland is normal. No mediastinal or hilar adenopathy. The heart size is enlarged but without pericardial effusion. The thoracic aorta is normal caliber. There is a moderate-sized left and small right pleural effusion with adjacent atelectasis. No pneumothorax is seen. Evidence of prior median sternotomy. There are mild degenerative changes of the spine. IMPRESSION: 1. No central pulmonary embolism. 2. Bilateral pleural effusions, greater on the left. Electronically signed by: Vicente Loo MD 11/12/2020 9:17 PM [facility]
[2020-11-12] MEDS ORDERED: HYDROmorphone HCL INJ 2 MG/ML VIAL IV ONE (21:46)
[2020-11-12] MEDS ORDERED: ONDANSETRON INJ 4 MG/2 ML VIAL IV ONE (21:47)
--- NOTE | 2020-11-12 21:51 | ED.PDOC ---
History of Present Illness - General Chief Complaint: Neuro Symptoms/Deficits Stated Complaint: altered mental status, abd pain Time Seen by Provider: 11/12/20 19:02 Source: family Exam Limitations: clinical condition - History of Present Illness Initial Comments: The patient is an 89-year-old male with advanced dementia presenting secondary to abdominal discomfort and some shortness of breath. The patient is already on hospice I believe for dementia. He has been having increased shortness of breath the last few days. He was hypoxic initially at around 88% when EMS arrived. He does some have some tachypnea and dyspnea. The patient does have very advanced dementia and does have difficulty conveying how he feels. He is however still pleasant and cooperative. Abdomen is distended and diffusely uncomfortable to palpation. The patient is very weak. He has coarse breath sounds. According to family, the patient has very poor oral intake. He eats and drinks very little. Timing/Duration: unsure Severity: moderate Improving Factors: nothing Allergies/Adverse Reactions: Allergies NO KNOWN ALLERGY Allergy (Verified 11/12/20 19:19) Home Medications: Ambulatory Orders Stlrjnetklokz-Yiyc-Odayyirtom [Fioricet] 1 ea PO Q8H PRN #21 tab 03/11/17 Aspirin [Yaa Low Dose] 81 mg PO DAILY 03/11/17 Ezetimibe [Zetia] 10 mg PO DAILY 03/11/17 Fe Fum-Iron Polysacch Complex- [Integra Plus] 1 cap PO DAILY 03/11/17 Furosemide [Lasix] 40 mg PO DAILY 03/11/17 Lisinopril 5 mg PO DAILY 03/11/17 Memantine HCl [Namenda] 10 mg PO DAILY 03/11/17 Metoprolol Succinate [Metoprolol Succinate ER] 25 mg PO DAILY 03/11/17 Potassium Chloride [Micro-K] 10 meq PO DAILY 03/11/17 Acetaminophen W/ Codeine [Tylenol/Codeine #4 300-60 mg] 1 ea PO Q4HR 10/12/20 Amoxicillin & Pot Clavulanate [Augmentin Tab] 875 mg PO BID #5 tab 10/12/20 Lactulose Syrup [Chronulac] 30 ml PO DAILY #300 ml 10/12/20 Levothyroxine Sodium 50 mcg PO DAILY 10/12/20 Review of Systems - Review of Systems Constitutional: States: malaise, weakness EENTM: States: no symptoms reported Respiratory: States: cough, short of breath Cardiology: States: no symptoms reported Gastrointestinal/Abdominal: States: abdominal pain, constipation Genitourinary: States: no symptoms reported Musculoskeletal: States: no symptoms reported Skin: States: no symptoms reported Neurological: States: no symptoms reported, see HPI Endocrine: States: no symptoms reported All other Systems: No Change from Baseline Past Medical History (General) - Patient Medical History Hx Seizures: - unknown Hx Stroke: - unknown Hx Dementia: - unknown Hx Asthma: - unknown Hx Cardiac Disorders: Yes - from Hx- Hx CEA and CABG; high cholesterol Hx Congestive Heart Failure: - unknown Hx Pacemaker: - unknown Hx Hypertension: Yes - from hx Hx Thyroid Disease: Yes Hx Diabetes: - unknown Hx Gastroesophageal Reflux: - unknown Hx Renal Disease: - unknown Hx Cancer: Yes - from Hx- skin CA Hx of HIV: - unknown Hx Hepatitis C: - unknown Hx MRSA: No - unknown Surgical History: noncontributory - Vaccination History Hx Tetanus, Diphtheria Vaccination: - unknown Hx Influenza Vaccination: - unknown Hx Pneumococcal Vaccination: - unknown Immunizations Up to Date: - unknown - Social History Hx Tobacco Use: - unknown Hx Alcohol Use: - unknown Family Medical History - Family History Father Family History: No Known Living Status: Physical Exam - Physical Exam General Appearance: Alert, Frail, Ill Appearing Eye Exam: bilateral normal Ears, Nose, Throat: hearing grossly normal - 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 Cardiovascular/Chest: normal peripheral pulses, no edema, other - Tachycardic regular. Peripheral Pulses: radial,right: 2+, radial,left: 2+ Gastrointestinal/Abdominal: other - Diffusely distended and uncomfortable to palpation. 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 Skin Exam: pallor Comments: Vital Signs - 24 hr 11/12/20 18:58 Temperature 97.3 F L Pulse Rate [ 126 H monitor] Respiratory 20 Rate Blood Pressure 136/96 [Left Arm] O2 Sat by Pulse 92 L Oximetry Progress - Progress Progress: 11/12/20 21:53 The patient is an 89-year-old male presented emergency room secondary to worsening clinical condition including increased shortness of breath along with increasing abdominal pain. He does have advanced dementia so he does have difficulty communicating his symptoms. Work-up shows a very large pleural effusion along with a developing small bowel obstruction. He does have sig nificant leukocytosis likely indicating some developing superimposed infection. The patient is not a good surgical candidate for a small bowel obstruction. Treatment of this would require a NG tube which would be highly uncomfortable likely for multiple days on end as the patient again is not a good surgical candidate. Even if the small bowel obstruction were to be resolved, and the pleural effusions were to be drained, they would simply reaccumulate quickly due to poor nutritional status and CHF. I do not believe that aggressive treatment of these problems will change the outcome for this patient and would only cause undue pain and suffering. I have discussed this with the patient's family and we are going to contact their hospice to start aggressive comfort care measures for the patient. He has been given a dose of Dilaudid as well as some Zofran here. As per the patient and his family's wishes he will be discharged home tongloria. markel long [id number] - Results/Orders Results/Orders: Rapid coronavirus test is negative. 11/12/20 19:03 Telemetry .CONTINUOUS Vital Signs-Tilt PRN UA [URINALYSIS] Stat 11/12/20 19:15 EKG STAT 11/12/20 19:53 BLOOD CULTURE Stat 11/12/20 19:59 Hold Metformin x 48Hrs [id number] Laboratory Results - last 24 hr 11/12/20 11/12/20 11/12/20 19:03 19:03 19:03 WBC 16.4 H RBC 4.76 Hgb 14.9 Hct 44.2 MCV 92.9 MCH 31.3 H MCHC 33.8 RDW 14.6 H Plt Count 269 MPV 8.5 Absolute Neuts (auto) 14.20 H Absolute Lymphs (auto) 0.90 L Absolute Monos (auto) 1.30 H Absolute Eos (auto) 0.00 Absolute Basos (auto) 0.00 Neutrophils % 86.6 H Lymphocytes % 5.4 L Monocytes % 7.8 Eosinophils % 0.0 L Basophils % 0.2 PT INR PTT (SP) Fibrinogen D-Dimer, Quantitative Sodium 133 L Potassium 4.3 Chloride 99 L Carbon Dioxide 18 L Anion Gap 20.3 H BUN 26 H Creatinine 1.07 BUN/Creatinine Ratio 24.3 H Random Glucose 185 H Serum Osmolality 275.9 Lactic Acid Calcium 9.4 Magnesium 2.1 Ferritin 235.9 Total Bilirubin 1.3 H AST 22 ALT 26 Alkaline Phosphatase 75 LD Total 149 Creatine Kinase 17 L CK-MB (CK-2) 1.7 CK-MB (CK-2) % Not Reportable Troponin I 0.03 C-Reactive Protein 4.3 H B-Natriuretic Peptide 457.0 H* Serum Total Protein 7.6 Albumin 4.1 Globulin 3.5 Albumin/Globulin Ratio 1.2 Amylase 40 Lipase 24 TSH 3.60 11/12/20 11/12/20 19:03 19:03 WBC RBC Hgb Hct MCV MCH MCHC RDW Plt Count MPV Absolute Neuts (auto) Absolute Lymphs (auto) Absolute Monos (auto) Absolute Eos (auto) Absolute Basos (auto) Neutrophils % Lymphocytes % Monocytes % Eosinophils % Basophils % PT 11.4 H INR 1.15 PTT (SP) 25.2 Fibrinogen 343 D-Dimer, Quantitative 2110.0 H* Sodium Potassium Chloride Carbon Dioxide Anion Gap BUN Creatinine BUN/Creatinine Ratio Random Glucose Serum Osmolality Lactic Acid 3.6 H* Calcium Magnesium Ferritin Total Bilirubin AST ALT Alkaline Phosphatase LD Total Creatine Kinase CK-MB (CK-2) CK-MB (CK-2) % Troponin I C-Reactive Protein B-Natriuretic Peptide Serum Total Protein Albumin Globulin Albumin/Globulin Ratio Amylase Lipase TSH EKG shows sinus tachycardia at 125 bpm. Right bundle branch block. No obvious new ST segment changes or T wave changes when compared to previous. Borderline prolonged QT interval. Chest x-ray shows dilated loops of bowel on the abdominal part of the x-ray. There is also significant pleural effusions. There is some cardiomegaly. CT scan of abdomen pelvis shows what appears to be a developing small bowel obstruction. He does have constipation in the rectum. There is also large pleural effusions. See report for details. - EKG/XRAY/CT CT Ordered: Yes Departure - Departure Clinical Impression: Small bowel obstruction, Hypoxia, Pleural effusion due to CHF (congestive heart failure), Malnutrition compromising bodily function Disposition: Discharge Hospice In-Home Srv Condition: Poor Departure Forms: ED Discharge - Pt. Copy, Patient Portal Self Enrollment Diet: regular diet Referrals: Derek Cole MD [Primary Care Provider] - 1-2 Weeks Home Medications: Ambulatory Orders Jqwnstgxeqrry-Kbut-Gcvwyhjnky [Fioricet] 1 ea PO Q8H PRN #21 tab 03/11/17 Aspirin [Yaa Low Dose] 81 mg PO DAILY 03/11/17 Ezetimibe [Zetia] 10 mg PO DAILY 03/11/17 Fe Fum-Iron Polysacch Complex- [Integra Plus] 1 cap PO DAILY 03/11/17 Furosemide [Lasix] 40 mg PO DAILY 03/11/17 Lisinopril 5 mg PO DAILY 03/11/17 Memantine HCl [Namenda] 10 mg PO DAILY 03/11/17 Metoprolol Succinate [Metoprolol Succinate ER] 25 mg PO DAILY 03/11/17 Potassium Chloride [Micro-K] 10 meq PO DAILY 03/11/17 Acetaminophen W/ Codeine [Tylenol/Codeine #4 300-60 mg] 1 ea PO Q4HR 10/12/20 Amoxicillin & Pot Clavulanate [Augmentin Tab] 875 mg PO BID #5 tab 10/12/20 Lactulose Syrup [Chronulac] 30 ml PO DAILY #300 ml 10/12/20 Levothyroxine Sodium 50 mcg PO DAILY 10/12/20 Additional Instructions: The patient is an 89-year-old male presented emergency room secondary to worsening clinical condition including increased shortness of breath along with increasing abdominal pain. He does have advanced dementia so he does have difficulty communicating his symptoms. Work-up shows a very large pleural effusion along with a developing small bowel obstruction. He does have significant leukocytosis likely indicating some developing superimposed infection. The patient is not a good surgical candidate for a small bowel obstruction. Treatment of this would require a NG tube which would be highly uncomfortable likely for multiple days on end as the patient again is not a good surgical candidate. Even if the small bowel obstruction were to be resolved, and the pleural effusions were to be drained, they would simply reaccumulate quickly due to poor nutritional status and CHF. I do not believe that aggressive treatment of these problems will change the outcome for this patient and would only cause undue pain and suffering. I have discussed this with the patient's family and we are going to contact their hospice to start aggressive comfort care measures for the patient. He has been given a dose of Dilaudid as well as some Zofran here. As per the patient and his family's wishes he will be discharged home tonight.
[2020-11-12 22:06] VITALS: O2SAT 96
[2020-11-12 22:08] VITALS: BP 120/80; TEMP 97.5
== END 2020-11-12 23:09 | disposition hospice, home (50) ==
LOC: ER 18:55
DX: K56.609 Unspecified intestinal obstruction, unspecified as to partial versus complete obstruction (principal); R09.02 Hypoxemia; I50.9 Heart failure, unspecified; E46 Unspecified protein-calorie malnutrition; R00.0 Tachycardia, unspecified; I45.10 Unspecified right bundle-branch block; F03.90 Unspecified dementia, unspecified severity, without behavioral disturbance, psychotic disturbance, mood disturbance, and anxiety; I11.0 Hypertensive heart disease with heart failure; E07.9 Disorder of thyroid, unspecified; E78.00 Pure hypercholesterolemia, unspecified; Z20.828 Contact with and (suspected) exposure to other viral communicable diseases; Z85.828 Personal history of other malignant neoplasm of skin; Z95.1 Presence of aortocoronary bypass graft; Z79.899 Other long term (current) drug therapy; Z79.82 Long term (current) use of aspirin
CPT/HCPCS: 36415; 71275; 74019; 74177; 80053; 82150; 82550; 82553; 82728; 83605; 83615; 83690; 83735; 83880; 84443; 84484; 85025; 85379; 85384; 85610; 85730; 86140; 87040; 87635; 93005; J1170; J2405; J2543; J7030; J7050